=== PATIENT | male | born 2000 | race Caucasian/White ===

== ENCOUNTER 2019-02-07 20:09 | Emergency (ER) | payer MEDICAID ==
[~2019-02-07] VITALS: Ht 167.6 cm; Wt 91.0 kg
[2019-02-07] MEDS ORDERED: LORAZEPAM 2MG/ML CPJ IM STA (20:42)
[2019-02-07 22:06] LABS: BASOPHILS % 0.4 % (0.0-2.0); EOSINOPHILS % 0.6 % (0.0-5.0); HEMATOCRIT. 45.4 % (42.0-52.0); HEMOGLOBIN. 15.8 g/dL (14.0-18.0); LYMPHOCYTES % 15.2 % (20.0-50.0); MEAN CORPUSCULAR HEMOGLOBIN 32.1 pg (28.0-32.0); MEAN CORPUSCULAR VOLUME 92.3 fL (80.0-94.0); MEAN PLATELET VOLUME 9.8 fl (7.4-10.4); MONOCYTES % 9.9 % (2.0-8.0); NEUTROPHILS % 73.9 % (40.0-76.0); PLATELET 273 x1000/uL (130-400); RED BLOOD CELL COUNT 4.92 mill/uL (4.7-6.1); RED CELL DISTRIBUTION WIDTH 13.2 % (11.6-14.6)
[2019-02-07 22:11] LABS: CHLORIDE 102 mEq/L (98-107)
[2019-02-07 22:14] VITALS: BP 120/67
[2019-02-07 22:16] LABS: ETHANOL BLOOD < 10 mg/dL
== END 2019-02-07 22:23 | disposition home or self-care (01) ==
LOC: ER 20:09
DX: F19.10 Other psychoactive substance abuse, uncomplicated (principal)
CPT/HCPCS: 36415; 80053; 80307; 80320; 80329; 85025; 93005; 96372; 99284; J2060; Z7610; G0480

== ENCOUNTER 2019-04-17 10:50 | Emergency (ER) | payer MEDICAID ==
[~2019-04-17] VITALS: Ht 167.6 cm; Wt 82.0 kg
[2019-04-17 16:34] VITALS: BP 119/82
== END 2019-04-17 16:35 | disposition home or self-care (01) ==
LOC: ER 11:09
DX: T50.991A Poisoning by other drugs, medicaments and biological substances, accidental (unintentional), initial encounter (principal); Y92.9 Unspecified place or not applicable
CPT/HCPCS: 36415; 80307; 80329; 99285